=== PATIENT | female | born 1985 | race Caucasian/White ===

== ENCOUNTER 2016-11-24 17:25 | Inpatient (IN) | payer OTHER ==
[~2016-11-24] VITALS: Ht 165.1 cm; Wt 86.5 kg
[~2016-11-24 17:25] MED LIST: PREN-39 PO
[2016-11-24 17:35] VITALS: Ht 165.1 cm; Wt 86.5 kg
[2016-11-24 17:36] VITALS: BP 143/83; PULSE 71; RESP 17
[2016-11-24] MEDS ORDERED: LACTATED RINGER'S 1,000 ML IV SCH (17:48)
[2016-11-24] MEDS ORDERED: CARBOPROST 250 MCG INJ IM PRN ×2 (18:00→22:30)
[2016-11-24] MEDS ORDERED: MISOPROSTOL 200 MCG TAB PR PRN ×2 (18:00→22:30)
[2016-11-24] MEDS ORDERED: OXYTOCIN 30 UNITS/LR 500 ML IV PRN ×2 (18:00→22:30)
[2016-11-24] MEDS ORDERED: METHYLERGONOVINE 0.2 MG INJ IM PRN ×2 (18:00→22:30)
[2016-11-24] MEDS ORDERED: OXYTOCIN 30 UNITS/LR 500 ML IV SCH ×2 (18:00→22:00)
[2016-11-24] MEDS ORDERED: CEFAZOLIN 2 GM/50 ML (PMX) 50 ML IV SCH (18:00)
--- NOTE | 2016-11-24 18:16 | TRIAGE ---
OB Triage Datetime Report Generated by CPN: 11/24/2016 18:15 Datetime: 11/24/2016 17:40 Time of Arrival: 11/24/2016 17:20 EGA: 38.6 Arrived By: Ambulatory Arrived From: Home Chief Complaint: PT PRESENTS TO TRIAGE COMPLAINING OF CONTRACTIONS Movement: Present Contractions: Regular Time Contractions Began: 11/24/2016 13:00 Contractions: Q 5 MINUTES Rupture of Membranes: Denies Vaginal Bleeding: None Vaginal Discharge: Denies Recent Sexual Intercouse: Denies Abdominal Trauma: Not Applicable Patient Complaints: Contractions Time Provider Notified: 11/24/2016 17:45 Provider Notified: DELSHAD Initial Plan: EFM/SVE Datetime: 11/24/2016 17:38 Vaginal Exam Dilatation (cms): 0.5 Effacement (%): 50 Station: -4 Exam By: ARMANDO Vaginal Bleeding: None Cervix, Consistency: Moderate Cervix, Position: Posterior Presentation 'A': Cephalic Datetime: 11/24/2016 17:35 Assessment Type: Triage Maternal Assessment Level of Consciousness: Fully Conscious DTR's/Clonus: DTRs 2+; No Clonus Headache: Denies Blurred Vision: No Respiratory Effort: Unlabored; Regular Rhythm Breath Sounds, Left: Clear and Equal Breath Sounds, Right: Clear and Equal Nausea/Vomiting: Denies RUQ Epigastric Pain: Denies Lower Extremities Edema: None Degree: None Upper Extremities Edema: None Degree: None Facial Edema: None Fall Risk Assessment History of Falling: (0) No Secondary Diagnosis: (0) No Ambulatory Aid: (0) Bedrest/Nurse Assist IV Therapy: (0) No Gait: (0) Normal/Bedrest/Immobile Mental Status: (0) Oriented to Own Ability Fall Score: 0 Fall Risk Score Definition: No Risk: No action required
[2016-11-24 18:35] LABS: ADD UMIC NO; URINE BILIRUBIN (Dip) NEGATIVE (NEGATIVE); URINE BLOOD (Dip) NEGATIVE (NEGATIVE); URINE COLOR LT. YELLOW (YELLOW); URINE GLUCOSE (Dip) NEGATIVE (NEGATIVE); URINE KETONES (Dip) NEGATIVE (NEGATIVE); URINE LEUKOCYTE ESTERASE (Dip) NEGATIVE (NEGATIVE); URINE NITRITE (Dip) NEGATIVE (NEGATIVE); URINE TOTAL PROTEIN (Dip) NEGATIVE (NEGATIVE); URINE UROBILINOGEN (Dip) 0.2 E.U./dL (0.1-1.0)
[2016-11-24 18:41] LABS: BASOPHILS % 0.3 % (0.0-2.0); EOSINOPHILS # 0.1 10^3/ul (0.0-0.5); EOSINOPHILS % 0.5 % (0.0-7.0); HEMATOCRIT 34.7 % (37.0-47.0); HEMOGLOBIN 11.9 g/dl (12.0-16.0); LYMPHOCYTES # 1.7 10^3/ul (0.8-2.9); LYMPHOCYTES % 18.2 % (15.0-51.0); MEAN CORPUSCULAR HEMOGLOBIN 30.6 pg (29.0-33.0); MEAN CORPUSCULAR HGB CONC 34.1 g/dl (32.0-37.0); MEAN CORPUSCULAR VOLUME 89.5 fl (82.0-101.0); MEAN PLATELET VOLUME 13.2 fl (7.4-10.4); MONOCYTE # 0.5 10^3/ul (0.3-0.9); MONOCYTES % 5.6 % (0.0-11.0); NEUTROPHIL # 7.2 10^3/ul (1.6-7.5); NEUTROPHILS % 75.4 % (39.0-77.0); PLATELET COUNT 131 10^3/UL (140-440); RED BLOOD COUNT 3.88 10^6/ul (4.20-5.40); RED CELL DISTRIBUTION WIDTH 13.4 % (11.5-14.5); UNCORRECTED WBC 9.5 10^3/ul (4.8-10.8); WHITE BLOOD COUNT 9.5 10^3/ul (4.8-10.8)
[2016-11-24 18:42] LABS: CONDITION 1
[2016-11-24 19:01] LABS: ALBUMIN 3.3 g/dl (3.3-4.9)
[2016-11-24 19:02] LABS: POTASSIUM 4.2 mmol/L (3.5-5.1)
[2016-11-24 19:04] LABS: ALBUMIN/GLOBULIN RATIO 1.03; BILIRUBIN,INDIRECT 0.1 mg/dl (0-1.1); BILIRUBIN,TOTAL 0.1 mg/dl (0.2-1.3); CREATININE 0.67 mg/dl (0.44-1.00); TOTAL PROTEIN 6.5 g/dl (6.1-8.1); URIC ACID 4.9 mg/dl (3.1-7.9)
[2016-11-24 19:05] LABS: CALCIUM 9.1 mg/dl (8.4-10.2)
[2016-11-24 19:11] LABS: INR 0.95; PARTIAL THROMBOPLASTIN TIME 25.1 Sec (25.0-35.0); PROTIME 12.7 Sec (12.2-14.2)
[2016-11-24] MEDS ORDERED: CITRIC ACID/NA CITRATE 30 ML CUP PO ONE (20:00)
[2016-11-24] MEDS ORDERED: ONDANSETRON 4 MG INJ IV STA (20:00)
[2016-11-24] MEDS ORDERED: morphine SULFATE/PF (10 MG/10 ML) INJ ONE (20:38)
[2016-11-24] MEDS ORDERED: OXYTOCIN 10 UNIT INJ ONE (20:38)
[2016-11-24] MEDS ORDERED: PHENYLephrine (100 MCG/ML) 5ML SYG ONE (20:38)
[2016-11-24] MEDS ORDERED: FENTAnyl 50 MCG/ML VIAL ONE (20:38)
[2016-11-24] MEDS ORDERED: METOCLOPRAMIDE 10 MG INJ ONE (20:38)
[2016-11-24] MEDS ORDERED: ZOLPIDEM 5 MG TAB PO PRN (21:30)
[2016-11-24] MEDS ORDERED: hydrALAzine 20 MG INJ IV PRN (21:30)
[2016-11-24] MEDS ORDERED: MEPERIDINE 25 MG INJ IV PRN (21:30)
[2016-11-24] MEDS ORDERED: NALOXONE (0.4 MG/ML) INJ IV PRN (21:30)
[2016-11-24] MEDS ORDERED: HYDROmorphONE (0.2 MG/ML) 10ML SYG IV PRN ×3 (21:30)
[2016-11-24] MEDS ORDERED: morphine 2 MG INJ IV PRN ×2 (21:30)
[2016-11-24] MEDS ORDERED: KETOROLAC 30 MG INJ IV PRN (21:30)
[2016-11-24] MEDS ORDERED: EPHEDrine SULFATE 50 MG/5 ML SYG IV PRN (21:30)
[2016-11-24] MEDS ORDERED: LABETALOL HCL 20MG INJ IV PRN (21:30)
[2016-11-24] MEDS ORDERED: ONDANSETRON 4 MG INJ IV PRN ×2 (21:30)
[2016-11-24] MEDS ORDERED: MIDAZOLAM 1 MG/ML 2 ML INJ IV PRN (21:30)
[2016-11-24] MEDS ORDERED: TRIMETHOBENZAMIDE 100 MG/ML VIAL IM PRN (21:30)
[2016-11-24] MEDS ORDERED: FENTAnyl 50 MCG/ML VIAL IV PRN ×3 (21:30)
[2016-11-24] MEDS ORDERED: DIPHENHYDRAMINE 50 MG INJ IV PRN ×2 (21:30)
[2016-11-24] MEDS ORDERED: OXYTOCIN 30 UNITS/LR 500 ML IV ONE (22:26)
[2016-11-24] MEDS ORDERED: LANOLIN 7 GM TUBE TOP PRN (22:30)
[2016-11-24] MEDS ORDERED: OXYCODONE/ACETAMINOPHEN (5/325) TAB PO PRN ×2 (22:30)
--- NOTE | 2016-11-24 22:32 | OPR ---
Operative Report Planned Procedure Procedure date Nov 24, 2016 Procedure(s) Repeat low transverse section Performed by: CHELSI GUTIERREZ MD Assisting provider: SAGRARIO CHAMBERLAIN MD Anesthesiologist: Xavi Aguirre M.D. Pre-procedure diagnosis IUP at 38w 6d, previous , in labor. Anesthesia Type: spinal Procedure Description Under satisfactory spinal anesthesia, the patient was prepped and draped and placed in a supine position, tilted to the left. Pfannenstiel incision was made , carried through the subcutaneous tissue. Bleeders brought under control with electrocautery. Fascia incised to the length of the incision. Rectus muscles from the fascia, divided midline. Peritoneum exposed, entered through a transverse incision. Exploration of abdomen revealed gravid uterus. Bladder flap was developed. Transverse incision was made in the lower segment of the uterus. Amniotic sac ruptured. Clear amniotic fluid noted. Nasal oropharyngeal suction was performed. The baby was handed to the team for immediate attention. The placenta was delivered manually intact. Uterine cavity was cleaned with moist lap. Uterus closed in 2 layers using #1 chromic in continuous fashion. Peritoneal cavity irrigated with warm saline. Sponge, needle and instrument count reported to be correct. Abdominal peritoneum closed with 2-0 chromic continuously. Rectus muscle approximated with the same suture. Fascia closed with 0 vicryl, and skin closed with 3-0 monocryl in a subcuticular stitch. Estimated blood loss 700 mL. Urine in figueroa bag note to be clear. The uterus was expressed. Pressure dressing applied over all and the patient was transported to the recovery room in excellent condition. Post-Procedure Post-procedure diagnosis Status post delivery of a viable baby boy weighing 3415 grams, or 7# 8oz and with Apgars of 8/9. IUP at 38w 6d, previous section, in labor. Findings: Live Baby boy, Apgars 8 and 9, weight 3415 grams. Specimen removed: Yes Specimen description Placenta. Complications: None Pt Condition post procedure: stable Disposition: PACU Physician Certification I, the undersigned physician, hereby certify that I have discussed the procedure described in this consent form with this patient (or the patient's legal sales representative metals), including: * The risk and benefits of the procedure; * Any adverse reactions that may reasonably be expected to occur; * Any alternative efficacious methods of treatment which may be medically viable ; * The potential problems that may occur during recuperation; * Potential for blood transfusion and associated risks/benefits; and * Any research or economic interest I may have regarding this treatment. I further certify that the patient/legally responsible person was encouraged to ask question and that all questions were answered. CHELSI GUTIERREZ MD Nov 24, 2016 22:32
--- NOTE | 2016-11-24 22:37 | HP ---
Date/Time of Note Date/Time of Note DATE: 11/24/16 TIME: 22:32 OB - History Hx of Present Free Text/Dictation 31 y.o. A1, a patient of Dr Latham, with an IUP at 38w 6d, previous , scheduled for her repeat section tomorrow and came in labor nithin q 2 minutes. No VB nor leaking.+ FM. Estimated Due Date: Dec 02, 2016 : 3 Para: 1 Spontaneous : 1 Care: Good Care Ultrasounds: Normal mid trimester US Obstetrical Complications: None Medical Complications: None Past Family/Social History * Past Medical, Surgical, Family and Obstetric Histories reviewed from chart. Blood Type: A+ Rubella: immune RPR/VDRL: Negative GBS Status: Negative HBsAG: Negative OB Admission Exam Vital Signs Vital Signs Vital Signs Date Time Temp Pulse Resp B/P Pulse Ox O2 Delivery O2 Flow Rate FiO2 11/24/16 17:36 97.9 71 17 143/83 97 Room Air Physical Exam HEENT: WNL Heart: Rhythm Normal Lungs: Clear Abdomen: WNL Extremities: Edema (1+) Reflexes: Normal Cervical Dilatation: 1cm Effacement: 50% Station: Ballotable Membranes: Intact Heart Rate: 130's Accelerations: Accelerations Present Decelerations: No Decelerations Varibility: Moderate Contractions on Admission: < 5 Minutes Apart Last 72 hours Lab Results CBC & BMP 11/24/16 18:00 Liver Function Test 11/24/16 18:00 Alanine Aminotransferase (ALT/SGPT) 25 Albumin 3.3 Alkaline Phosphatase 231 H Aspartate Amino Transf (AST/SGOT) 26 Direct Bilirubin 0.00 Total Protein 6.5 OB Assessment/Plan Reason for admission: active labor, section Plan: Section (repeat) CHELSI GUTIERREZ MD Nov 24, 2016 22:37
--- NOTE | 2016-11-24 22:43 | DELSUM ---
Delivery Summary A-C Datetime Report Generated by CPN: 11/24/2016 22:43 DELIVERY PERSONNEL [employer] Contractor: Sosa, Brooke MATERNAL INFORMATION Delivery Anesthesia: Spinal Medications in Delivery: see anesthesia record Estimated Blood Loss (ml): 700 Placenta Cultured: No Maternal Complications: None RN Comments: R C/S LABOR SUMMARY EDC: 12/02/2016 00:00 No. Babies in Womb: 1 Attempted: No Labor Anesthesia: None LABOR INFORMATION Reason for Induction: Not Applicable Onset of Labor: 11/24/2016 13:00 Oxytocin: N/A Group B Beta Strep: Negative Group B Beta Strep: Negative Antibiotics # of Doses: 1 Antibiotics Time of Last Dose: 2039 Steroids Given: None Reason Steroids Not Administered: Not Applicable MEMBRANES Membranes Rupture Method: Artificial Rupture of Membranes: 11/24/2016 21:20 Length of Rupture (hr): 0.00 Amniotic Fluid Color: Clear Amniotic Fluid Amount: Moderate Amniotic Fluid Odor: None STAGES OF LABOR Stage 3 hr: 0 Stage 3 min: 1 Total Time in Labor hr: 8 Total Time in Labor min: 21 CSECTION DELIVERY Primary Indication: Repeat Elective CSection Urgency: Non Elective CSection Incidence: Repeat Labor: Labor Elective: Nonelective CSection Incision: Lower Uterine Transverse BABY A INFORMATION Infant Delivery Date/Time: 11/24/2016 21:20 Method of Delivery: Born in Route : No : N/A Forceps: N/A Vacuum Extraction: N/A Shoulder Dystocia : N/A SHOULDER DYSTOCIA BABY A Delivery Date/Time: 11/24/2016 21:20 PRESENTATION/POSITION BABY A Presentation: Cephalic Cephalic Presentation: Vertex Breech Presentation: N/A PLACENTA INFORMATION BABY A Placenta Delivery Time : 11/24/2016 21:21 Placenta Method of Delivery: Manual Removal Placenta Status: Delivered SCORES BABY A Heart Rate 1 min: >100 bpm Resp Effort 1 min: Good Cry Reflex Irritability 1 min: Cough/Sneeze/Pulls Away Muscle Tone 1 min: Active Motion Color 1 min: Blue/Pale Resuscitation Effort 1 min: Tactile Stimulation SCORE 1 MIN: 8 Heart Rate 5 min: >100 bpm Resp Effort 5 min: Good Cry Reflex Irritability 5 min: Cough/Sneeze/Pulls Away Muscle Tone 5 min: Active Motion Color 5 min: Body [place], Extremit Blue Resuscitation Effort 5 min: Tactile Stimulation SCORE 5 MIN: 9 INFORMATION BABY A Gestational Age at Delivery: 38.6 Gestational Status: Early Term- 37- 38.6 Weeks Outcome : Liveborn Condition : Stable Infant Sex: Male IDENTIFICATION/MEDS BABY A ID Band Number: [id number] ID Band Location: Right Leg; Left Arm Sensor Applied: Yes Sensor Number: [id number] Sensor Location : Cord Clamp Vitamin K Given : Not Given Erythromycin Given: Not Given WEIGHT/LENGTH BABY A Birthweight (gm): 3415 Weight (lb): 7 Infant Weight (oz): 8 Infant Length (in): 19.00 Length (cm): 48.26 CORD INFORMATION BABY A No. Cord Vessels: 3 Nuchal Cord : N/A Cord Blood Taken: Yes Suction: Mouth; Nose ASSESSMENT BABY A Complications: None Physical Findings at Delivery: Within Normal Limits Infant Respirations: Appears Normal Linoleum Floor Layer/ALS Called : No Infant Care By: JEAN PIERRE/SAMY Transferred To: Remains with Mother
[2016-11-25 00:30] VITALS: BP 134/80; PULSE 55; RESP 19
[2016-11-25] MEDS: LACTATED RINGER'S 1,000 ML IV SCH ×4 (02:57→18:39)
[2016-11-25 04:30] VITALS: BP 129/79; PULSE 58; RESP 19
[2016-11-25] MEDS: IBUPROFEN 800 MG TAB PO SCH ×3 (06:00→21:57)
[2016-11-25 07:05] LABS: BASOPHILS % 0.2 % (0.0-2.0); HEMATOCRIT 31.9 % (37.0-47.0); LYMPHOCYTES # 1.5 10^3/ul (0.8-2.9); MEAN CORPUSCULAR HEMOGLOBIN 30.8 pg (29.0-33.0); MEAN CORPUSCULAR HGB CONC 34.5 g/dl (32.0-37.0); MEAN CORPUSCULAR VOLUME 89.3 fl (82.0-101.0); MEAN PLATELET VOLUME 12.4 fl (7.4-10.4); MONOCYTE # 0.5 10^3/ul (0.3-0.9); NEUTROPHIL # 10.6 10^3/ul (1.6-7.5); NEUTROPHILS % 83.8 % (39.0-77.0); PLATELET COUNT 101 10^3/UL (140-440); RED BLOOD COUNT 3.58 10^6/ul (4.20-5.40); RED CELL DISTRIBUTION WIDTH 13.4 % (11.5-14.5); UNCORRECTED WBC 12.6 10^3/ul (4.8-10.8); WHITE BLOOD COUNT 12.6 10^3/ul (4.8-10.8)
[2016-11-25 07:18] LABS: CONDITION 1
[2016-11-25 07:45] VITALS: BP 108/63; PULSE 72; RESP 16
[2016-11-25 16:00] VITALS: BP 117/74; PULSE 75; RESP 16
--- NOTE | 2016-11-25 19:34 | QN ---
Documentation Comment No complaint. Afebrile VSS Abdomen Soft POD #1 stable Ambulate Advance diet MANUELA WRAY MD Nov 25, 2016 19:34
[2016-11-25 19:45] VITALS: BP 119/75; PULSE 70; RESP 18
[2016-11-26] MEDS: LACTATED RINGER'S 1,000 ML IV SCH ×2 (01:30→19:00)
[2016-11-26 04:00] VITALS: BP 116/68; RESP 18
[2016-11-26] MEDS: IBUPROFEN 800 MG TAB PO SCH ×3 (05:38→22:18)
[2016-11-26 07:25] LABS: BASOPHILS % 0.3 % (0.0-2.0); EOSINOPHILS # 0.1 10^3/ul (0.0-0.5); EOSINOPHILS % 0.8 % (0.0-7.0); HEMATOCRIT 29.8 % (37.0-47.0); HEMOGLOBIN 10.2 g/dl (12.0-16.0); LYMPHOCYTES % 21.8 % (15.0-51.0); MEAN CORPUSCULAR HEMOGLOBIN 30.9 pg (29.0-33.0); MEAN CORPUSCULAR HGB CONC 34.2 g/dl (32.0-37.0); MEAN CORPUSCULAR VOLUME 90.5 fl (82.0-101.0); MEAN PLATELET VOLUME 12.5 fl (7.4-10.4); MONOCYTE # 0.6 10^3/ul (0.3-0.9); MONOCYTES % 6.5 % (0.0-11.0); NEUTROPHIL # 6.3 10^3/ul (1.6-7.5); NEUTROPHILS % 70.6 % (39.0-77.0); PLATELET COUNT 102 10^3/UL (140-440); RED CELL DISTRIBUTION WIDTH 13.9 % (11.5-14.5)
[2016-11-26 07:43] LABS: CONDITION 1
[2016-11-26 08:25] VITALS: BP 119/71; PULSE 56; RESP 14
[2016-11-26 16:33] VITALS: BP 126/75; PULSE 65; RESP 14
[2016-11-26] MEDS ORDERED: MAGNESIUM HYDROXIDE 30ML CUP PO ONE (19:00)
[2016-11-26 19:45] VITALS: BP 128/63; PULSE 64; RESP 18
[2016-11-27] MEDS: LACTATED RINGER'S 1,000 ML IV SCH (01:30)
[2016-11-27 04:00] VITALS: BP 115/73; PULSE 62; RESP 18
[2016-11-27] MEDS: IBUPROFEN 800 MG TAB PO SCH ×2 (05:38→13:34)
--- NOTE | 2016-11-27 06:54 | DS ---
DATE OF ADMISSION: 11/24/2016 DATE OF DISCHARGE: 11/27/2016 ADMITTING DIAGNOSIS: at term with previous section, in labor. HISTORY: A 31-year-old female, 3, para 1-0-1-1 at the time of admission, para 2-0-1-2 at ti me of discharge, with term presented with labor contractions. PAST SURGICAL HISTORY: Significant for section. HOSPITAL COURSE: After obtaining informed consent on 11/24/2016, the patient underwent a repeat low transverse section. The patient's operation was uncomplicated. Postoperatively, the katerina ent was given clear liquid diet which was advanced to regular diet, which she tolerated well. The p atient is discharged on postop day #3 after having had adequate bladder and bowel function. CONDITION ON DISCHARGE: Stable. DISCHARGE INSTRUCTIONS: DIET: Regular. ACTIVITIES: Pelvic rest and no strenuous activities. MEDICATIONS: 1. Motrin as needed for pain. 2. Continue with vitamins and ferrous sulfate. FOLLOWUP: In clinic in 1 week. FINAL DIAGNOSES: 1. Term delivered by section. 2. Previous section. 3. Mother with single liveborn. Dictated By: MANUELA GUZMAN/NTS Conf#: [id number] DID#: [id number]
[2016-11-27 08:30] VITALS: BP 116/50; PULSE 57; RESP 17
[2016-11-27] MEDS ORDERED: DIPHTH/TET/ACEL PERTUSS (ADULT) 0.5 ML VIAL IM* ONE (09:00)
== END 2016-11-27 14:00 | disposition home or self-care (01) | DRG 766 ==
LOC: OBT 17:25 → L-D 17:26 → OBT 17:45 → L-D 17:45 → PP1 11-25 00:34
PROVIDERS: ADMIT Obstetrics & Gynecology; ATTEND Obstetrics & Gynecology
PROC: 10D00Z1 Extraction of Products of Conception, Low, Open Approach (ICD-10-PCS; principal; 2016-11-24 21:00)
DX: O34.211 Maternal care for low transverse scar from previous cesarean delivery (principal); Z37.0 Single live birth; Z3A.38 38 weeks gestation of pregnancy
CPT/HCPCS: 80053; 81003; 84560; 85025; 85384; 85610; 85730; 86592; 86850; 86900; 86901; 87340; 90715; 94760; 99464; G0463; J0690; J1200; J1885; J2274; J2370; J2405; J2590; J2765; J3010; J7120